=== PATIENT | female | born 1955 | race Caucasian/White ===

== ENCOUNTER → 2016-08-24 | Outpatient (CLI) | payer BC ==
[~2016-08-24] MED LIST: ACET-732 PO; AMOX500C2 PO; ATOR10TA64 PO; CALC-191 PO; LEVO100T81 PO; LOSA100T44 PO; MULT-806 PO; ONDA4TAB4 PO; TRAM50TA53 PO
== END ==
LOC: WC.BC 15:48
DX: Z12.31 Encounter for screening mammogram for malignant neoplasm of breast (principal)
CPT/HCPCS: 77063; G0202